=== PATIENT | female | born 1940 ===

== ENCOUNTER 2017-07-29 17:38 | Emergency (ER) | payer MEDICARE, OTHER ==
[2017-07-29 17:44] VITALS: RESP 18; TEMP 97.5; O2SAT 100
[2017-07-29] MEDS ORDERED: Sodium Chloride 0.9% 1,000 ML IV STA (18:46)
--- NOTE | 2017-07-29 19:03 | ED PDOC ---
HPI: Abdomen Time Seen by Provider: 07/29/17 17:55 Chief Complaint (Nursing): Abdominal Pain Chief Complaint (Provider): Abdominal Pain History Per: Patient History/Exam Limitations: no limitations Onset/Duration Of Symptoms: Days (x2) Current Symptoms Are (Timing): Still Present Location Of Pain/Discomfort: Epigastric Associated Symptoms: Nausea, Vomiting, Diarrhea. denies: Fever, Other (no bloody stool) Additional Complaint(s): Selina Gunter, a 76 year old female with past medical history of hypertension and colitis presents to the Emergency Department complaining of epigastric abdominal pain. Reports of nausea, vomiting, and diarrhea onset two days ago. Denies any fever or bloody stool. PMD:Jed Bueno Past Medical History Reviewed: Historical Data, Nursing Documentation, Vital Signs Vital Signs: Last Vital Signs Temp 97.5 F L 07/29/17 17:42 Pulse 72 07/29/17 17:42 Resp 18 07/29/17 17:42 BP 121/58 L 07/29/17 17:42 Pulse Ox 100 07/29/17 19:18 - Medical History PMH: Arthritis, CAD, CHF, Gall Bladder Disease, HTN, Hypercholesterolemia Denies: Chronic Kidney Disease Other PMH: Colitis - Surgical History Surgical History: Cholecystectomy - Family History Family History: States: Unknown Family Hx - Home Medications Home Medications: Ambulatory Orders Medication Instructions Recorded Dicyclomine [Bentyl] 10 mg PO TID #0 cap 02/26/16 Gabapentin [Neurontin] 400 mg PO BID #0 cap 02/26/16 Nitroglycerin [Nitrostat] 0.4 mg SL Q15MIN PRN #0 tab.subl 02/26/16 Ondansetron [Zofran Tab] 8 mg PO TID PRN #0 tab 02/26/16 Pantoprazole [Protonix] 40 mg PO DAILY #0 ect 02/26/16 Valsartan [Diovan] 160 mg PO DAILY #0 tablet 02/26/16 metroNIDAZOLE [Flagyl] 500 mg PO Q8 #0 tab 02/26/16 traMADol [Ultram] 50 mg PO Q6 PRN #16 tab 05/03/16 Pantoprazole Sodium [Protonix] 40 mg PO DAILY #30 tablet 07/29/17 - Allergies Allergies/Adverse Reactions: Allergies Allergy/AdvReac Type Severity Reaction Status Date / Time No Known Allergies Allergy Verified 07/29/17 17:44 Review of Systems ROS Statement: Except As Marked, All Systems Reviewed And Found Negative Constitutional: Negative for: Fever Gastrointestinal: Positive for: Nausea, Vomiting, Diarrhea. Negative for: Other (no bloody stool) Physical Exam - Reviewed Nursing Documentation Reviewed: Yes Vital Signs Reviewed: Yes - Physical Exam Appears: Positive for: Well, Non-toxic, No Acute Distress Head Exam: Positive for: ATRAUMATIC, NORMAL INSPECTION, NORMOCEPHALIC Skin: Positive for: Normal Color, Warm, Dry Eye Exam: Positive for: Normal appearance, EOMI, PERRL ENT: Positive for: Normal ENT Inspection Neck: Positive for: Normal, Painless ROM, Supple Cardiovascular/Chest: Positive for: Regular Rate, Rhythm, Other (clear bilaterally). Negative for: Murmur Respiratory: Positive for: Normal Breath Sounds. Negative for: Respiratory Distress Gastrointestinal/Abdominal: Positive for: Soft, Tenderness (epigastric and periumbilical). Negative for: Guarding, Rebound Back: Positive for: Normal Inspection. Negative for: L CVA Tenderness, R CVA Tenderness Extremity: Positive for: Normal ROM. Negative for: Pedal Edema, Deformity Neurologic/Psych: Positive for: Alert, Oriented (x3) - Laboratory Results Result Diagrams: 07/29/17 19:30 07/29/17 19:30 - ECG O2 Sat by Pulse Oximetry: 100 (RA) Pulse Ox Interpretation: Normal Medical Decision Making Medical Decision Making: Time: 18:46 Initial Plan: --CT scan --EKG --CMP --CBC --ED Urine dipstick --Normal Saline 1,000 ml IV 150 mls/hr --Pepcid 20mg IVP --Zofran 4mg IVP Once --Reevaluation Documented by Nicanor Monsalve acting as a scribe for Gus Simmons MD. All medical record entries made by the Scribe were at my direction and personally dictated by me. I have reviewed the chart and agree that the record accurately reflects my personal performance of the history, physical exam, medical decision making, and the department course for this patient. I have also personally directed, reviewed, and agree with the discharge instructions and disposition. Disposition - Clinical Impression Clinical Impression: Gastritis - Patient ED Disposition Is Patient to be Admitted: No Counseled Patient/Family Regarding: Studies Performed, Diagnosis, Need For Followup, Rx Given - Disposition Referrals: Milagros BACON,MD Kathe [Medical Doctor] - Disposition: Routine/Home Disposition Time: 22:21 Condition: FAIR Prescriptions: Pantoprazole Sodium [Protonix] 40 mg PO DAILY #30 tablet. Instructions: Gastritis (ED) Forms: [facility] (Vietnamese) Print Language: PORTUGUESE
[2017-07-29 19:43] LABS: BASO % 0.7 % (0.0-2.0); EOS % 0.3 % (0.0-4.0); HEMOGLOBIN 10.5 g/dL (12.0-16.0); LYMPH # 1.5 K/uL (1.0-4.3); LYMPH % 28.6 % (20.0-40.0); MEAN CELL VOLUME 84.5 fl (81.0-99.0); MEAN CORPUSCULAR HEMOGLOBIN 28.3 pg (27.0-31.0); MEAN CORPUSCULAR HGB CONC 33.5 g/dL (33.0-37.0); MEAN PLATELET VOLUME 9.1 fl (7.2-11.7); MONO # 0.4 K/uL (0.0-0.8); MONO % 6.8 % (0.0-10.0); NEUT # 3.3 K/uL (1.8-7.0); NEUT % 63.6 % (50.0-75.0); NRBC % 0.1 % (0.0-0.0); RBC 3.73 Mil/uL (3.80-5.20); RED CELL DISTRIBUTION WIDTH 12.8 % (11.5-14.5); WHITE BLOOD COUNT 5.3 K/uL (4.8-10.8)
[2017-07-29 19:47] LABS: ALB/GLOB RATIO 1.2 (1.0-2.1); ALBUMIN 3.8 g/dL (3.5-5.0); ALT/SGPT 20 U/L (9-52); AST/SGOT 17 U/L (14-36); BLOOD UREA NITROGEN 7 mg/dl (7-17); CALCIUM 9.3 mg/dL (8.4-10.2); GFR AFRICAN-AMERICAN > 60; GFR NON-AFRICAN AMERICAN > 60
[2017-07-29] MEDS ORDERED: Iohexol 300 100 ML IJ ONE (20:34)
[2017-07-29] MEDS ORDERED: Sodium Chloride 0.9% 50 ML IV ONE (20:35)
[2017-07-29 22:35] VITALS: BP 126/59; PULSE 90
--- NOTE | 2017-07-30 09:34 | CT ---
PROCEDURE: CT Abdomen and Pelvis with contrast HISTORY: abd pain h/o colitis COMPARISON: None. TECHNIQUE: Contrast dose: 85 mL Omnipaque 300 Radiation dose: Total exam DLP = 362.3 mGy-cm. This CT exam was performed using one or more of the following dose reduction techniques: Automated exposure control, adjustment of the mA and/or kV according to patient size, and/or use of iterative reconstruction technique. FINDINGS: LOWER THORAX: Bibasilar dependent atelectasis. Heart size enlarged. LIVER: Stable appearance of 1.8 x 1.7 cm posteromedial segment 2 heterogeneous structure with internal fat components. Mild central biliary ductal prominence. GALLBLADDER AND BILE DUCTS: Prior cholecystectomy with surgical clips place and expected prominence of the CBD. PANCREAS: Unremarkable. No gross lesion or ductal dilatation. SPLEEN: Unremarkable. ADRENALS: Unremarkable. No mass. KIDNEYS AND URETERS: Unremarkable. No hydronephrosis. No solid mass. VASCULATURE: Unremarkable. No aortic aneurysm. BOWEL: Colonic diverticulosis. No obstruction. No gross mural thickening. APPENDIX: Normal appendix. PERITONEUM: Unremarkable. No free fluid. No free air. LYMPH NODES: Unremarkable. No enlarged lymph nodes. BLADDER: Distended. REPRODUCTIVE: Unremarkable. BONES: Old right superior/inferior pubic rami fractures. Degenerative changes. OTHER FINDINGS: None. IMPRESSION: No acute abdominal pelvic pathology. Stable findings as above.
--- NOTE | 2017-07-30 11:23 | CARD ---
APPROVED REPORT EKG Measurement Heart [id number] <Conclusion> Sinus bradycardia Otherwise normal ECG
== END 2017-07-29 22:42 | disposition home or self-care (01) ==
LOC: H.ER 17:38
DX: K29.70 Gastritis, unspecified, without bleeding (principal); E78.00 Pure hypercholesterolemia, unspecified; I11.0 Hypertensive heart disease with heart failure; I25.10 Atherosclerotic heart disease of native coronary artery without angina pectoris
CPT/HCPCS: 74177; 80053; 85025; 87086; 93005; 96374; 96375; 99283; J2405; J7040; Q9967